=== PATIENT | male | born 1960 | race Caucasian/White ===

== ENCOUNTER 2023-08-24 14:00 | Emergency (ER) | payer OTHER, SELFPAY ==
[2023-08-24 14:02] VITALS: BP 183/96
--- NOTE | 2023-08-24 15:40 | ED.GENMED ---
History of Present Illness
General
Chief Complaint: Skin Problem
Source: patient
Exam Limitations: none
Time Seen by Provider: 08/24/23 14:33
Travel History
Have you had any contact with someone who has COVID-19?: No
Do you have any symptoms of coronavirus? Fever > 100 degrees, chills, cough, shortness of breath, sore throat, loss of taste or smell, muscle aches, or headache?: No
History of Present Illness
History of Present Illness:
63-year-old male who presents with a continuous and persistent wound to the left ear area. The patient states he has been seen at urgent care about 4 5 days ago and was told to use Neosporin. Patient states symptoms have persisted. No fevers that
he knows of. Denies pain. Denies itching. States it was like a pimple at the tip of his earlobe at first. He did see blisterlike lesions at some point as well. Patient admits that he has high pain tolerance but denies any focal pain. No
hearing deficits. No inner ear complaints
Past History
Past History
ED Past Medical History: Psychiatric and Other (Meds for Add)
ED Past Surgical History: Orthopedic
Social History
Tobacco: Smoker
Phy Exam
Physical Exam
Physical Exam:
CONSTITUTIONAL Vital signs reviewed, Patient alert and oriented to person, place and time. Well-appearing
HEAD atraumatic, normocephalic.
EYES eyelids normal to inspection, Extraocular muscles intact, Conjunctiva normal, Sclera normal.
ENT open skin excoriation noted just below the left earlobe. There is some honey colored crusting noted to the tip of the earlobe. There is a small flat scaled lesion posterior to the excoriated area. He does have some honey colored lesion that
comes up anterior to the tragus. His external auditory canals normal. TM normal.
NECK normal range of motion, Trachea midline, no jugular venous distention.
RESP no respiratory distress
BACK No obvious deformities
UPPER EXTREMITY Gross Range of motion normal, gross motor strength normal
LOWER EXTREMITY Gross range of motion normal, Gross motor strength normal
NEURO Speech normal, No focal motor deficits include, Chasidy coma scale 15, Memory normal, Cranial Nerves intact to screening exam.
SKIN Skin warm, dry, and normal in color.
PSYCHIATRIC Patient oriented to person place and time, Normal affect.
Course
Orders/Labs/Results
Orders:
Orders
08/24/23 15:14
Wound Culture [Wound/Abscess/Other Culture] Urgent
CHRISTIN Source: Face
Specimen Description: Left
Date Specimen was Collected: 08/24/23
Time Specimen was Collected: 15:06
Vital Signs
Initial and Last Documented VS:
Initial Vital Signs
Temp Pulse Resp BP Pulse Ox
100.4 F H 79 20 183/96 97
08/24/23 14:02 08/24/23 14:02 08/24/23 14:02 08/24/23 14:02 08/24/23 14:02
Last Documented Vital Signs
Temp Pulse Resp BP Pulse Ox
100.4 F H 79 20 183/96 97
08/24/23 14:02 08/24/23 14:02 08/24/23 14:02 08/24/23 14:02 08/24/23 14:02
MDM/Problems Addressed
Differential Diagnosis Includes:
Impetigo, fungal infection, varicella
MDM/Problems Addressed:
Rash
*Pulse Oximetry
Patient hypoxic: no
*Critical Care Note
Total Time (30-74mins, 75-104mins- exclusive of procedures): Not Applicable
Data Reviewed
Source: patient
Prescriptions/Medications Considered But Not Given:
Consider antivirals with symptoms been ongoing for 4 weeks and no vesicles
Patient Management
Escalation/DeEscalation of care consider admission/obs:
Patient appears well. Skin is excoriated with some honey colored lesions noted. Question impetigo. Cover with topical mupirocin as well as oral antibiotics. Okay for discharge. Wound culture taken. Will refer to dermatology for outpatient
follow-up
ED Attending Note
-
Portions of this chart may have been created with voice recognition software.� Occasional wrong word or��sound alike� substitutions may have occurred due to the inherent limitations of voice recognition software.
Discharge Plan
Departure
Patient Disposition: Home (Routine Discharge)
Date of Disposition: 08/24/23
Time of Disposition: 15:44
Patient with high blood pressure during this ER visit?: Yes
Discharge Problem:
Impetigo
Instructions: Impetigo, BLOOD PRESSURE
Prescriptions:
New
cephalexin 500 mg tablet
500 mg PO QID 7 Days Qty: 28 0RF
mupirocin 2 % ointment
1 applic topical TID Qty: 22 0RF
No Action
fluoxetine 20 MG capsule
20 mg PO DAILY
Medidate
20 mg PO DAILY
hydrocodone-acetaminophen [Vicodin] 1 EACH tablet
1 ea PO Q6HPRN PRN (Reason: pain) Qty: 15 0RF
Referrals:
NONE,* [Family Provider] -
Activity Restrictions/Additional Instructions:
Please see your doctor in the next 3 days for follow-up and reevaluation. If symptoms persist despite this treatment, further testing and treatment may be necessary. In addition, if symptoms persist, outpatient dermatology follow-up may be
necessary. Return immediately for fevers, worsening rash, worsening pain or any other concerns.
Interventions
Interventions:
*Risk Screen - Suicide Last Done: 08/24/23 14:02
*General Assessment Last Done: 08/24/23 14:02
*Neglect/Abuse Screening Last Done: 08/24/23 14:02
*ED COVID-19 Vaccine History Last Done: 08/24/23 14:49
Discharge Date and Time
Print Language: MAORI
== END 2023-08-24 15:57 | disposition home or self-care (01) ==
LOC: EMR 14:00
PROVIDERS: EMERGENCY PHYSICIAN Emergency Medicine
DX: L01.00 Impetigo, unspecified (principal); F17.200 Nicotine dependence, unspecified, uncomplicated
CPT/HCPCS: 99282; 87070; 87147; 87205